=== PATIENT | male | born 1960 | race African-American/Black ===

== ENCOUNTER 2017-01-16 19:00 | Emergency (ER) | payer OTHER ==
[~2017-01-16] VITALS: Ht 165.1 cm; Wt 89.0 kg
[~2017-01-16 19:00] MED LIST: CLON0.3T PO; COR25 PO
[2017-01-16 21:15] LABS: PARTIAL THROMBOPLASTIN TIME 25.9 sec (24.0-34.0); PROTHROMBIN TIME 10.8 sec
[2017-01-16 21:16] LABS: BASOPHILS % 0.3 % (0.0-2.0); EOSINOPHILS % 0.9 % (0.0-5.0); HEMATOCRIT. 36.4 % (42.0-52.0); HEMOGLOBIN. 11.6 g/dL (14.0-18.0); LYMPHOCYTES % 13.3 % (20.0-50.0); MEAN CORPUSCULAR HEMOGLOBIN 27.7 pg (28.0-32.0); MEAN CORPUSCULAR HGB CONC 31.9 g/dL (31.0-37.0); MEAN CORPUSCULAR VOLUME 86.8 fL (80.0-94.0); MEAN PLATELET VOLUME 9.5 fl (7.4-10.4); MONOCYTES % 9.4 % (2.0-8.0); NEUTROPHILS % 76.1 % (40.0-76.0); PLATELET 169 x1000/uL (130-400); RED BLOOD CELL COUNT 4.19 mill/uL (4.7-6.1); RED CELL DISTRIBUTION WIDTH 13.9 % (11.6-14.6); WHITE BLOOD COUNT 5.9 x1000/uL (4.5-11.0)
[2017-01-16 21:23] LABS: ALANINE AMINOTRANSFERASE 45 IU/L (13-61); ALBUMIN 3.3 g/dL (3.4-5.0); ANION GAP 12; CALCIUM 8.8 mg/dL (8.5-10.1); CARBON DIOXIDE 29 mEq/L (21-32); CHLORIDE 104 mEq/L (98-107); INDEX HEMOLYSI 1 (1-3); INDEX ICTERIC 1 (1-4); INDEX LIPEMIC 1 (1-3); LIPASE 247 IU/L (73-393); TROPONIN I < 0.02 ng/mL (0.00-0.04); UREA NITROGEN BLOOD 27 mg/dL (7-21); eGFR 55 mL/min (>60)
[2017-01-16 23:00] VITALS: BP 134/76
== END 2017-01-16 23:13 | disposition home or self-care (01) ==
LOC: ER 20:23
DX: K80.20 Calculus of gallbladder without cholecystitis without obstruction (principal); I10 Essential (primary) hypertension; K50.90 Crohn's disease, unspecified, without complications; Z93.2 Ileostomy status; Z88.8 Allergy status to other drugs, medicaments and biological substances
CPT/HCPCS: 36415; 71010; 76705; 80053; 83690; 84484; 85025; 85610; 85730; 93005; 99285; Z7610